=== PATIENT | female | born 1975 | race Caucasian/White ===

== ENCOUNTER 2016-07-10 07:59 | Day surgery (SDC) | payer BC ==
[2016-07-10 08:38] LABS: URINE BILIRUBIN NEGATIVE (NEG); URINE BLOOD NEGATIVE (NEG); URINE GLUCOSE (UA) NEGATIVE (NEG); URINE KETONE NEGATIVE (NEG); URINE LEUKOCYTE ESTERASE NEGATIVE (NEG); URINE NITRITE NEGATIVE (NEG); URINE PROTEIN NEGATIVE (NEG)
[2016-07-10 08:40] LABS: URINE APPEARANCE CLEAR; URINE COLOR YELLOW
[2016-07-10 09:29] LABS: INR 0.9 INR (0.9-1.1); PROTHROMBIN TIME 10.7 SECONDS (9.0-13.6)
[2016-07-10 09:34] LABS: BASO % 1.1 % (0-2); BASO ABSOLUTE COUNT 0.1 tho/cmm (0.0-0.2); EOS % 1.4 % (0-7); EOSINOPHIL ABSOLUTE COUNT 0.1 tho/cmm (0.0-0.7); HCT-HEMATOCRIT 39.2 % (34.0-49.0); HGB-HEMOGLOBIN 13.7 gm/dl (12.0-15.5); IMMATURE GRANULOCYTES ABSOLUTE 0.01 tho/cmm (0-0.03); IMMATURE GRANULOCYTES PERCENT 0.2 % (0-0.3); LYMPH ABSOLUTE COUNT 1.8 tho/cmm (0.8-4.5); MCH (MEAN CORPUSCULAR HGB) 31.4 pg (28.0-32.0); MCHC MEAN CORPUSCULAR HGB CONC 34.9 % (32.0-36.0); MCV (MEAN CELL VOLUME) 89.9 fl (82.0-96.0); MEAN PLATELET VOLUME 9.9 cmc (9.4-12.4); MONO % 10.2 % (0-12); MONOCYTE ABSOLUTE COUNT 0.6 tho/cmm (0.0-1.2); NEUTROPHILS % 54.1 % (40-80); PLATELET COUNT 309 tho/cmm (150-450); RED BLOOD COUNT 4.36 mil/cmm (4.00-5.20); RED CELL DISTRIBUTION WIDTH 11.9 % (12.4-16.4); WHITE BLOOD COUNT 5.6 tho/cmm (4.0-10.0)
[2016-07-10 09:39] LABS: PREGNANCY-SERUM NEGATIVE (NEGATIVE)
[2016-07-10 09:40] LABS: ANION GAP 12 mmol/L (0-20); BLOOD UREA NITROGEN 13 mg/dl (6-24); CALCIUM 8.6 mg/dl (8.5-10.5); CARBON DIOXIDE-VENOUS 24 mmol/L (22-32); CHLORIDE 109 mmol/l (96-110); CREATININE 0.62 mg/dl (0.50-1.10); GLUCOSE 95 mg/dL (70-110); SODIUM 141 mmol/L (135-145); eGFR VALUE FOR BLACK >90 mL/Min
== END 2016-07-10 14:05 ==
LOC: SHSB 07:59 → ORW 10:09 → PACU 11:57 → SHSB 12:25
PROVIDERS: Obstetrics & Gynecology
PROC: 0U5B8ZZ Destruction of Endometrium, Via Natural or Artificial Opening Endoscopic (ICD-10-PCS; principal; 2016-07-10)
PROC: 0UB98ZZ Excision of Uterus, Via Natural or Artificial Opening Endoscopic (ICD-10-PCS; 2016-07-10)
DX: D25.0 Submucous leiomyoma of uterus (principal); F17.210 Nicotine dependence, cigarettes, uncomplicated; Z90.49 Acquired absence of other specified parts of digestive tract; Z98.890 Other specified postprocedural states